=== PATIENT | male | born 1940 | race Two or more races ===

== ENCOUNTER 2022-12-28 12:42 | Inpatient (IN) | payer MEDICARE, OTHER ==
[2022-12-28] VITALS (12 sets, daily range): BP systolic 88–107; BP diastolic 56–77; PULSE 106–121; RESP 14–23; TEMP 97.3–98.3; O2SAT 90–100
[~2022-12-28] VITALS: Ht 170.2 cm; Wt 68.0 kg
[2022-12-28 14:02] LABS: Basophils # (auto) 0 10 ^3/uL (0-0.2); Basophils % (auto) 0.2 % (0.0-2.0); Eosinophils # (auto) 0 10 ^3/uL (0-0.8); Eosinophils % (auto) 0.3 % (0.0-7.0); Hematocrit 46.8 % (41.0-53.0); Hemoglobin 15.3 g/dL (13.5-17.5); Lymphocytes # (auto) 1.3 10 ^3/uL (0.4-5.4); Lymphocytes % (auto) 9.8 % (10.0-50.0); Mean Corpuscular Hemoglobin 31.5 pg (28.0-32.0); Mean Corpuscular Hgb Conc. 32.7 g/dL (32.0-36.0); Mean Corpuscular Volume 96.4 fL (80.0-100.0); Monocytes % (auto) 7.4 % (0.0-12.0); Neutrophils # (auto) 11.1 10 ^3/uL (1.6-8.6); Neutrophils % (auto) 82.3 % (37.0-80.0); Red Blood Cells 4.85 10^6/uL (4.5-5.90); Red Cell Distribution Width 13.2 % (11.8-14.3); White Blood Cell 13.5 10^3/uL (4.4-10.8)
[2022-12-28 14:13] LABS: Alanine Aminotransferase 44 U/L (7-40); Albumin 4.1 g/dL (3.2-4.8); Alkaline Phosphatase 87 U/L (46-116); Anion Gap 7 (5-15); Aspartate Aminotransferase 96 U/L (13-40); BUN/Creatinine Ratio 21.7 (10.0-20.0); Bilirubin, Total 0.9 mg/dL (0.2-1.0); Blood Urea Nitrogen 23 mg/dL (9-23); Calcium 8.7 mg/dL (8.5-10.1); Carbon Dioxide 26 mmol/L (20-30); Chloride 107 mmol/L (98-107); Glucose 181 mg/dL (74-106); Potassium 4.4 mmol/L (3.5-5.1); Sodium 140 mmol/L (136-145); Total Protein 6.4 g/dL (5.7-8.2)
[2022-12-28] MEDS ORDERED: ANGIOMAX 250 MG VIAL IV ONE (14:37)
[2022-12-28] MEDS ORDERED: VERAPAMIL 2.5MG/ML INJ 2ML VIAL IV ONE (14:37)
[2022-12-28] MEDS ORDERED: fentaNYL CITRATE 100 MCG/2 ML VL ONE (14:38)
[2022-12-28] MEDS ORDERED: SODIUM CHL 0.9% 50 ML ONE ×2 (14:38→14:40)
[2022-12-28] MEDS ORDERED: LIDOCAINE 2%HCL (LOCAL ANESTH.) INJ 20ML MDV ONE (14:38)
[2022-12-28] MEDS ORDERED: MIDAZOLAM HCL 2MG/2ML 2ml VIAL (1mg/ml) ONE (14:38)
[2022-12-28] MEDS ORDERED: IODIXANOL 320MG/ML 100ML BTL IV ONE ×2 (14:38→14:53)
[2022-12-28] MEDS ORDERED: HEPARIN SODIUM (PORCINE) 5000 UNITS/ML 1ML VIAL IV ONE (14:45)
[2022-12-28] MEDS ORDERED: ASPirin 325 MG TAB PO ONE (15:00)
[2022-12-28] MEDS ORDERED: HYDROcodone-ACET 5/325MG TAB PO PRN (15:00)
[2022-12-28] MEDS ORDERED: LORazepam 0.5 MG TAB PO PRN (15:00)
[2022-12-28] MEDS ORDERED: MAALOX PLUS or MAALOX 30 ML PO PRN (15:00)
[2022-12-28] MEDS ORDERED: NITROGLYCERIN 0.4 MG SL TAB SL PRN (15:00)
[2022-12-28] MEDS ORDERED: DOCUSATE SOD 100 MG CAP PO PRN (15:00)
[2022-12-28] MEDS ORDERED: ONDANSETRON HCL 4 MG/2 ML VIAL IV PRN (15:00)
[2022-12-28] MEDS ORDERED: NITROGLYCERIN 0.4 MG SL TAB SL ONE (15:00)
[2022-12-28] MEDS ORDERED: HYDROmorphone HCL 2 MG/ML VL/or syr IV PRN (15:00)
[2022-12-28] MEDS ORDERED: ACETAMINOPHEN 325 MG TAB PO PRN (15:00)
[2022-12-28] MEDS ORDERED: HEPARIN SODIUM (PORCINE) 5000 UNITS/ML 1ML VIAL ONE (15:20)
[2022-12-28 15:29] LABS: Partial Thromboplastin Time 32.4 SEC (24.5-34.5); Prothrombin Time 10.5 sec (9.3-11.8)
[2022-12-28] MEDS: SODIUM CHLORIDE 0.9% 1,000 ML IV SCH (16:00)
[2022-12-28] MEDS: MORPHINE SULFATE INJ 2 MG/ml SYRG IV PRN (17:36)
[2022-12-28] MEDS ORDERED: ATORVASTATIN 20 MG TAB PO SCH (22:00)
[2022-12-28] MEDS: ENOXAPARIN SOD 80 MG/0.8ML SYRINGE SC SCH (22:31)
[2022-12-28] MEDS: CARVEDILOL 3.125 MG TAB PO SCH (22:32)
[2022-12-29] MEDS: MORPHINE SULFATE INJ 2 MG/ml SYRG IV PRN ×2 (00:44→11:14)
[2022-12-29 05:00] VITALS: BP 94/67; PULSE 107; RESP 20; TEMP 97.4; O2SAT 96
[2022-12-29] MEDS: SODIUM CHLORIDE 0.9% 1,000 ML IV SCH (07:07)
[2022-12-29 07:08] LABS: Alanine Aminotransferase 63 U/L (7-40); Albumin 4.1 g/dL (3.2-4.8); Alkaline Phosphatase 81 U/L (46-116); Anion Gap 15 (5-15); Aspartate Aminotransferase 119 U/L (13-40); BUN/Creatinine Ratio 13.1 (10.0-20.0); Blood Urea Nitrogen 24 mg/dL (9-23); Calcium 9.1 mg/dL (8.5-10.1); Carbon Dioxide 18 mmol/L (20-30); Chloride 102 mmol/L (98-107); Cholesterol 131 mg/dL (< 200); Glucose 265 mg/dL (74-106); HDL Cholesterol 36 mg/dL (40-59); LDL Cholesterol 80 mg/dL (< 100); Potassium 4.6 mmol/L (3.5-5.1); Triglycerides 146 mg/dL (< 150)
[2022-12-29 07:09] LABS: Total Protein 6.6 g/dL (5.7-8.2)
[2022-12-29 07:20] LABS: Sodium 135 mmol/L (136-145)
[2022-12-29 07:55] VITALS: BP 97/61; PULSE 102; RESP 18
[2022-12-29 07:57] VITALS: PULSE 103
[2022-12-29 09:00] VITALS: BP 105/65; PULSE 88; RESP 20; TEMP 98.2; O2SAT 98
[2022-12-29] MEDS: CARVEDILOL 3.125 MG TAB PO SCH (09:51)
[2022-12-29] MEDS ORDERED: ASPirin 81 mg TAB PO SCH (10:00)
[2022-12-29] MEDS ORDERED: NTG 0.1MG/HR TOPICAL PATCH TD ONE (11:30)
[2022-12-29 11:45] VITALS: BP 116/73; PULSE 95; RESP 18
[2022-12-29] MEDS ORDERED: FUROSEMIDE 40 MG/4 ML VIAL IV ONE (12:30)
[2022-12-29] MEDS: ENOXAPARIN SOD 80 MG/0.8ML SYRINGE SC SCH (13:12)
[2022-12-29] MEDS ORDERED: SODIUM BICARBONATE 50ML VIAL 75 ML in D5W 5% 1,000 ML IV SCH (13:45)
[2022-12-29] MEDS ORDERED: EPINEPHrine HCL 250 ML IV ONE (14:51)
[2022-12-29] MEDS ORDERED: DOBUTamine 1000MCG/ML 250 ML IV ONE (15:07)
== END 2022-12-29 23:37 ==
LOC: ER 12:42 → TELE 15:03 → TELE-CENTR 18:07
PROVIDERS: ADMIT Internal Medicine; ATTEND Internal Medicine
PROC: B211YZZ Fluoroscopy of Multiple Coronary Arteries using Other Contrast (ICD-10-PCS; principal; 2022-12-28)
PROC: 5A12012 Performance of Cardiac Output, Single, Manual (ICD-10-PCS; 2022-12-29)
DX: I21.4 Non-ST elevation (NSTEMI) myocardial infarction (principal); I50.31 Acute diastolic (congestive) heart failure; I42.9 Cardiomyopathy, unspecified; I23.3 Rupture of cardiac wall without hemopericardium as current complication following acute myocardial infarction; I25.10 Atherosclerotic heart disease of native coronary artery without angina pectoris; I11.0 Hypertensive heart disease with heart failure; I46.9 Cardiac arrest, cause unspecified
CPT/HCPCS: 36415; 71045; 80053; 80061; 82962; 83036; 83880; 84443; 84484; 85025; 85610; 85730; 92950; 93005; 93306; 93458; 99152; 99291; G0378; J0171; J2250; Q9967